=== PATIENT | female | born 1960 ===

== ENCOUNTER 2024-11-11 06:34 | Day surgery (SDC) | payer OTHER ==
[~2024-11-11] VITALS: Ht 158.8 cm; Wt 53.6 kg
[~2024-11-11 06:34] MED LIST: SODIUM CHLORIDE 0.9% 1,000 ML ONE
[2024-11-11] MEDS ORDERED: LIDOCAINE 4% 50 ML SOLUTION TP ONE (06:35)
[2024-11-11] MEDS ORDERED: BENZOCAINE 20% 50 MCG/SPRAY 57 GM TP ONE (06:35)
[2024-11-11] MEDS ORDERED: LIDOCAINE 2% 11 ML JELLY TP ONE (06:35)
[2024-11-11] MEDS ORDERED: ALBUTEROL SULFATE 2.5 MG/0.5 ML NEB SOLUTION NEB ONE (06:35)
[2024-11-11] MEDS ORDERED: UPAD15TA PO (07:04)
[2024-11-11] MEDS ORDERED: MONT-40 PO (07:04)
[2024-11-11] MEDS ORDERED: ALEN70TA80 PO (07:04)
[2024-11-11 08:06] LABS: GLUCOMETER DEV NAME(LOC) SDS.; GLUCOSE,POINT OF CARE 97 MG/DL (70-110)
[2024-11-11] MEDS ORDERED: FentaNYL CITRATE PF 100 MCG/2 ML VIAL ONE (08:08)
[2024-11-11] MEDS ORDERED: MIDAZOLAM HCL 2 MG/2 ML VIAL ONE (08:09)
[2024-11-11] MEDS: SODIUM CHLORIDE 0.9% 1,000 ML IV ONE (08:09)
[2024-11-11 09:40] VITALS: PULSE 86; RESP 14; O2SAT 100
[2024-11-11] MEDS ORDERED: MethylPREDNISolone SOD SUCC 125 MG/2 ML VIAL ONE (10:06)
[2024-11-11] MEDS: MethylPREDNISolone SOD SUCC 125 MG/2 ML VIAL IVP ONE (10:09)
== END 2024-11-11 12:30 | disposition home or self-care (01) ==
LOC: SURGERY 06:34
PROVIDERS: ATTEND Internal Medicine Critical Care Medicine
DX: R05.3 Chronic cough (principal); R04.2 Hemoptysis; J38.4 Edema of larynx; B37.0 Candidal stomatitis; Z79.899 Other long term (current) drug therapy; Z98.890 Other specified postprocedural states
CPT/HCPCS: 31623; 82962; 87206; 87101; 87220; 87070; 31624; 94640; 71045; 87015; J3010; J2250; J2919; J7030; 88108; J7613; Z7610